=== PATIENT | male | born 1950 | race Caucasian/White ===

== ENCOUNTER 2022-07-03 01:42 | Day surgery (SDC) | payer MEDICARE, OTHER, SELFPAY ==
[2022-06-23 10:22] VITALS: BMI 31.9
[2022-07-03 08:19] VITALS: BP 150/95; PULSE 77; RESP 20; TEMP 36; O2SAT 98; BMI 31.4
--- NOTE | 2022-07-03 08:28 | PM.HPGS ---
History of Present Illness History of Present Illness Consent: Risks, benefits, and alternatives have been discussed and questions answered. Patient agrees to proceed with procedure. Chief complaint: positive cologuard Narrative: Barrett Chinchilla is a 72 year old male Presents for colonoscopy. Patient recently found to have positive Cologuard test. Patient denies abdominal pain. He has had no bleeding. Family history noncontributory. Patient presents today for neoplasia screening. Review of Systems Review of Systems: Review of systems noncontributory. [facility] Past Medical History Medical History (Updated 07/03/22 @ 08:29 by Easton Mckinney MD) Benign essential tremor Dyslipidemia Elevated blood pressure reading without diagnosis of hypertension Elevated PSA Impaired fasting blood sugar Positive colorectal cancer screening using Cologuard test Surgical History Surgical History History of tonsillectomy and adenoidectomy 1956 S/P tendon repair Family History Family History Father Lung cancer Social History Social History Smoking status: Never smoker Alcohol intake: current Alcohol use details: seldom Substance use: never Substance use type: does not use Lack of Transportation: No Lack of Food: Never True Current Housing: I Have Housing Concerned About Future Housing: No Difficulty Paying Gas/Electric Bills: No Difficulty Paying for Meds: No Currently Unemployed: No Difficulty w/ Childcare or Family Care: No Living arrangements: with family Occupation/Education: retired Gender identity (if verbalized by the patient): Male Sexual Orientation (if Verbalized by the Patient): Straight or Heterosexual Spiritual care concerns: No Meds Home Medications and Allergies Home Medications Medication Instructions Recorded Confirmed Type rosuvastatin 10 mg tablet (Crestor) 10 mg PO QHS #30 tabs 05/19/22 07/03/22 Rx Allergies Allergy/AdvReac Type Severity Reaction Status Date / Time No Known Allergies Allergy Unknown Verified 07/03/22 08:17 Exam Narrative: Physical exam reveals patient to be alert. Vital signs stable. HEENT exam is unremarkable. Patient is anicteric. Lungs are clear to auscultation and percussion. Heart is without murmur or extra sounds. Abdomen bowel sounds are present soft nontender with no organomegaly. Digital external rectal exam is normal. Assessment and Plan Assessment and plan (1) Positive colorectal cancer screening using Cologuard test: Code(s): R19.5 - Other fecal abnormalities Status: Acute Assessment and Plan: Patient presents for screening colonoscopy because of recent positive Cologuard test. Further recommendations may be given after endoscopy.
--- NOTE | 2022-07-03 08:29 | P.PNAN_ITS ---
Anes - Initial Pre Proc Eval Procedure: Operation Date: 07/03/22 09:00 Proposed Procedures p Colonoscopy - Easton Mckinney MD Date/Time: 07/03/22 08:29 Surgeon: Easton Mckinney MD Pre Op Diagnosis: positive cologuard Patient Data Age: 72 Gender: M Height: 1.78 m Weight: 99.2 kg Allergies Allergy/AdvReac Type Severity Reaction Status Date / Time No Known Allergies Allergy Unknown Verified 07/03/22 08:17 Home Medications Medication Instructions Recorded Confirmed Type rosuvastatin 10 mg tablet (Crestor) 10 mg PO QHS #30 tabs 05/19/22 07/03/22 Rx Patient hx anesthesia problems: none Family hx anesthesia problems: none Results Review: All pre-operative results and documents have been reviewed as part of the pre- operative evaluation. [facility] Past Medical History Medical History (Updated 07/03/22 @ 08:29 by Easton Mckinney MD) Benign essential tremor Dyslipidemia Elevated blood pressure reading without diagnosis of hypertension Elevated PSA Impaired fasting blood sugar Positive colorectal cancer screening using Cologuard test Surgical History Surgical History History of tonsillectomy and adenoidectomy 1956 S/P tendon repair Family History Family History Father Lung cancer Social History Social History Smoking status: Never smoker Alcohol intake: current Alcohol use details: seldom Substance use: never Substance use type: does not use Lack of Transportation: No Lack of Food: Never True Current Housing: I Have Housing Concerned About Future Housing: No Difficulty Paying Gas/Electric Bills: No Difficulty Paying for Meds: No Currently Unemployed: No Difficulty w/ Childcare or Family Care: No Living arrangements: with family Occupation/Education: retired Gender identity (if verbalized by the patient): Male Sexual Orientation (if Verbalized by the Patient): Straight or Heterosexual Spiritual care concerns: No Anes - Eval Final PreProcedure Day of Procedure 07/03/22 08:29 Patient weight: obese Heart: regular rate and rhythm Lungs: clear to auscultation and normal air movement Airway: Mallampati scale class II Neurological: alert and oriented Last oral intake: >/= 8 hours ASA classification: II Emergent: no Anesthetic plan: proceed Anesthesia type and monitoring: general GIVS Results Review: All pre-operative results and documents have been reviewed as part of the pre-operative evaluation. Informed Consent: The patient's anesthetic plan and its attendant risks and benefits were discussed with the patient/family/POA. Questions were solicited and answers provided to the satisfaction of the patient/family/POA.
[2022-07-03] MEDS: LACTATED RINGERS 1,000 ML 150 ML IV CONT (08:30)
[2022-07-03] MEDS: SIMETHICONE ORAL SUSPENSION 20 MG/0.3 ML 30 ML BOTTLE 0.6 ML IRRIGATION (09:14)
[2022-07-03 09:27] VITALS: BP 96/59; PULSE 68; RESP 18; O2SAT 96
[2022-07-03 09:37] VITALS: BP 117/79; PULSE 67; RESP 20; O2SAT 98
[2022-07-03 09:47] VITALS: BP 123/81; PULSE 66; RESP 20; O2SAT 97
== END 2022-07-03 10:03 | disposition home or self-care (01) ==
PROVIDERS: PCP Physician Assistant Medical; Visit Provider Internal Medicine Gastroenterology
PROC: 0DJD8ZZ Inspection of Lower Intestinal Tract, Via Natural or Artificial Opening Endoscopic (ICD-10-PCS; CPT 45378; principal; 2022-07-03 09:00)
DX: Z12.11 Encounter for screening for malignant neoplasm of colon (principal); R19.5 Other fecal abnormalities; K57.30 Diverticulosis of large intestine without perforation or abscess without bleeding; E78.5 Hyperlipidemia, unspecified; G25.0 Essential tremor
CPT/HCPCS: G0121; J2704; J7120